=== PATIENT | female | born 1990 | race Caucasian/White ===

== ENCOUNTER 2024-09-17 07:05 | Inpatient (IN) ==
--- NOTE | 2024-09-09 12:42 | Anesthesiology Consultation ---
Date of Service September 09, 2024 Assessment & Plan (1) Encounter for pre-operative examination: - lumbar spine MRI 09/20/22 (full report is under imaging) 1. Congenital/developmental changes within the lumbar spine most pronounced within the lower lumbar spine as described above. This likely accounts for the degenerative changes within the mid to lower lumbar spine as well as the central canal/neural foraminal narrowing. 2. No fracture or subluxation. 3. Degenerative changes within the lower thoracic spine as described above. - Per patternmaker on 09/09/24: No known infectious disease contacts, current infectious disease symptoms in past 10 days or COVID positive test result in the past 30 days. Chart Review Chart Review: childbirth educator initiated History Surgery Operation Date: 09/17/24 08:50 Proposed Procedures p Section (Delivery of Baby Through Abdominal Incision) - Jacoby Hammond MD, FACOG Height/Weight Height: 5 ft 2 in Weight: 79.832 kg Allergies Allergy/AdvReac Type Severity Reaction Status Date / Time No Known Allergies Allergy Verified 09/09/24 11:58 Medications Home Medications Medication Instructions Recorded Confirmed Last Taken prenat.vits,deonna,wsb-vuhw-galzc 1 tab PO DAILY 11/13/22 09/09/24 Unknown Past Medical History Medical History (Updated 09/09/24 @ 12:40 by Bettye Macias PA-C) Disc degeneration, lumbosacral History of COVID-2020, resolved Infertility, female hx Low back pain Lumbar radiculopathy Lumbosacral radiculopathy Past Family History Family History Grandfather (Maternal) , early CVD in 40's Myocardial infarction Uncle , Early CVD Myocardial infarction Uncle Myocardial infarction Uncle Myocardial infarction Father Diabetes Hypertension Grandmother (Maternal) Hypertension Mother Dyslipidemia Denies family history of Ovarian cancer Prostate cancer Breast cancer Colorectal cancer Past Surgical History Surgical History Hx of dilation and curettage 07/2023 Status post colposcopy [place] teeth extracted Social History Smoking Status: Never smoker Do You Dip or Chew Tobacco: No Hx Alcohol Use: Yes (none while ) Alcohol type: wine alcohol intake frequency: holidays/special occasions only Hx Substance Use: Yes substance use type: former substance user and marijuana Last Used Substance Other:: none for last 2-3 years, only occasional when she did (had medical card) Lab Results Anesthesia Preop Results Results Anesthesia Widget: Hgb 12.3 g/dl (12.0-16.0) 07/23/24 Hct 36.7 % (37.0-47.0) L 07/23/24 Urine Color Yellow 07/23/24 Urine Appearance Clear (Clear) 07/23/24 Urine pH 8.0 (4.5-7.5) H 07/23/24 Urine Specific [place] 1.013 (1.000-1.030) 07/23/24 Urine Protein Negative (Negative) 07/23/24 Urine Glucose (UA) Negative (Negative) 07/23/24 Urine Ketones Negative (Negative) 07/23/24 Urine Blood Negative (Negative) 07/23/24 Urine Nitrite Negative (Negative) 07/23/24 Urine Bilirubin Negative (Negative) 07/23/24 Urine Urobilinogen Negative (Negative) 07/23/24 Urine Leukocyte Esterase Negative (Negative) 07/23/24
[2024-09-17] MEDS ORDERED: OXYTOCIN 30 UNITS/NSS 30 UNITS/500 ML BAG IV PRN (07:18)
[2024-09-17] MEDS ORDERED: SODIUM CHLORIDE 0.9% 100 ML IV PRN (07:25)
[2024-09-17] MEDS ORDERED: OXYTOCIN 10 UNITS/ML VIAL ONE (07:43)
[2024-09-17] MEDS ORDERED: PHENYLEPHRINE HCL 10 MG/ML VIAL ONE (07:51)
[2024-09-17 07:54] LABS: Hematocrit (blood only) 35.6 % (37.0-47.0); Hemoglobin 12.4 g/dl (12.0-16.0); Mean Corpuscular Hemoglobin 30.1 pg (25.0-34.0); Mean Corpuscular Hgb Conc 34.8 g/dL (32.0-36.0); Mean Corpuscular Volume 86.4 fL (80.0-100.0); Mean Platelet Volume 10.1 fL (9.4-12.4); Platelet Count 244 K/uL (130-400); RDW Coefficient of Variation 13.2 % (11.5-14.5); RDW Standard Deviation 41.1 fL (36.4-46.3); Red Blood Count 4.12 M/uL (4.20-5.40); White Blood Count 10.16 K/ul (4.8-10.8)
[2024-09-17] MEDS: ACETAMINOPHEN 500 MG TAB PO SCH (08:13)
[2024-09-17] MEDS: LACTATED RINGER'S 1,000 ML IV SCH ×2 (08:15→09:29)
[2024-09-17] MEDS: CITRIC ACID/SODIUM CITRATE 15 ML UDC PO SCH (08:46)
--- NOTE | 2024-09-17 09:06 | History & Physical Report ---
Date of Service September 17, 2024 Assessment & Plan (1) Placenta previa antepartum in third trimester: Plan: section. The patient was counseled to the nature of the procedure including alternatives such as labor. Risks were discussed including bleeding infection injury to bowel bladder ureter vessels and even baby. Deep Vein thrombosis, pulmonary embolus discussed. Breakdown of incision reviewed. Deep vein thrombosis pulmonary embolus hernia and failure of the incision to heal were discussed Patient verbalized understanding of this and was given ample time to ask questions Note we had extensive discussion yesterday regarding placenta previa the risks of hemorrhage the risk of blood transfusion and possibility of hysterectomy in these cases this is an anterior placenta there is an alternative though as labor is not a reasonable alternative with placenta previa extensively reviewed the consent yesterday in depth patient had time to ask questions and voices understanding Admission and Anticipated Discharge Date Admission Date: September 17, 2024 History of Present Illness Primary Care Provider: Damion Marcial III, EMMANUEL Visit TEMO Calculator Estimated Delivery Date Method Current WG Current Estimate 10/09/24 Ultrasound #1 36w 5d Other Estimates 10/09/24 Ultrasound #2 36w 5d LMP: 01/08/24 : 3 Full term: 0 Premature: 0 Total Number of Induced Abortions: 0 Total Number of Spontaneous Abortions: 2 Ectopics: 0 Multiple births: 0 Number of Living Children: 0 and Delivery Plans AMA (35@del) *Weekly NST's @36 wks Anterior previa. *recheck at 36wks *sched 37wk c/s (HROBM ok for 36w6d with steroids) C/S SCHEDULED FOR 09/17/[address] PHILLIPS AND DR. STEVENSON TO ASSIST IN THE MAIN OR Rubella non-immune Bleeding in Steroids to be given at L&D 09/14 and 09/15 GBS+ OB Visit Log Initial Weight: 153 lb 3.2 oz Allergies Allergy/AdvReac Type Severity Reaction Status Date / Time Latex, Natural Rubber Allergy Rash Verified 09/17/24 08:17 Home Medications Medication Instructions Recorded Confirmed Type prenat.vits,deonna,mgs-qajt-gwbti 1 tab PO DAILY 11/13/22 09/17/24 History calcium carbonate [Tums] 3 tabs PO DAILY PRN Heartburn 09/10/24 09/17/24 History famotidine 20 mg tablet (Pepcid) 20 mg PO DAILY 09/17/24 09/17/24 History Patient History Medical History (Updated 09/17/24 @ 08:09 by Roya Hadley RN) Placenta previa History of COVID-2020, resolved Infertility, female hx Lumbosacral radiculopathy Low back pain Disc degeneration, lumbosacral Lumbar radiculopathy Surgical History Hx of dilation and curettage 07/2023 Status post colposcopy [place] teeth extracted Family History Grandfather (Maternal) , early CVD in 40's Myocardial infarction Uncle , Early CVD Myocardial infarction Uncle Myocardial infarction Uncle Myocardial infarction Father Diabetes Hypertension Grandmother (Maternal) Hypertension Mother Dyslipidemia Denies family history of Ovarian cancer Prostate cancer Breast cancer Colorectal cancer Social History Smoking Status: Never smoker Second Hand Exposure: No; Do You Dip or Chew Tobacco: No; Tobacco Cessation Education Requested by Patient: No Hx Alcohol Use: No Hx Substance Use: No Preferred Language: Hungarian Communication Ability: Effective Visual Impairment: No Limitations Hearing Ability: Normal Hotel Sales Manager Required: No Beliefs That Will Affect Care: None marital status: marital status details: Janes (34) [phone] Current Living Situation: Spouse Current Living Situation Comment: Lives with , 2 dogs current occupational status: employed current occupation: Dental hygienist How many Children do You have: 0 Other Information That Helps Us Care for You: No Feels Safe at Home: Yes Safety Concerns: Feels Safe At This Time Childhood Exposure to Second-Hand Smoke: Yes Diet: regular caffeine: Yes during the past year weight has: remained stable Dental Care, Regularly: Yes Physical Activity Frequency: Daily Seatbelt Use: never Sunscreen Use: No Assistive Devices: None Physical Exam Constitutional: WD/WN, vitals as above well developed and well nourished Respiratory: normal respiratory effort, lungs clear to auscultation normal respiratory effort Cardiovascular: RRR, no murmur, no edema Gastrointestinal (Abdomen): normal bowel sounds, soft, nontender, no hepatosplenomegaly Results & Data Vital Signs (Past 12 Hours) Vital Signs Temp Resp 09/17/24 07:47 98.1 F 20 Coding Level of Care Code None Diagnoses Placenta previa antepartum in third trimester O44.03
[2024-09-17] MEDS ORDERED: MoRPHine SULFATE PF 1 MG/ML 10 ML AMP/VIAL ONE (09:10)
[2024-09-17] MEDS ORDERED: fentaNYL citrate PF 100 MCG/2 ML VIAL ONE (09:14)
[2024-09-17] MEDS: ceFAZolin 2000MG 2,000 MG/15 ML SYR IV SCH (09:27)
[2024-09-17] MEDS ORDERED: NALOXONE HCL 0.4 MG/1 ML VIAL/CARP IV PRN (09:54)
[2024-09-17] MEDS ORDERED: ONDANSETRON INJ 2 MG/ML 2 ML VIAL IV PRN (09:54)
[2024-09-17] MEDS ORDERED: MoRPHine SULFATE 2 MG/ML CARP IV PRN (09:54)
[2024-09-17] MEDS ORDERED: NALOXONE HCL 0.08 MG in SYRINGE 1.8 ML IV PRN (09:54)
[2024-09-17] MEDS ORDERED: PROMETHAZINE 6.25 MG/50.25 ML BAG IV PRN (09:54)
[2024-09-17] MEDS ORDERED: HYDROmorphone INJ 0.5 MG/0.5 ML SYR IV PRN (09:54)
[2024-09-17] MEDS ORDERED: ePHEDrine sulfate 50 MG/ML AMP IV PRN (09:54)
[2024-09-17] MEDS ORDERED: oxyCODONE HCL IR 5 MG TAB (IMMEDIATE RELEASE) PO PRN (09:54)
[2024-09-17] MEDS ORDERED: NALBUPHINE HCL INJ 10 MG/ML AMP IV PRN (09:54)
[2024-09-17] MEDS ORDERED: MEPERIDINE HCL 25 MG/ML CARP/VIAL IV PRN (09:54)
[2024-09-17] MEDS ORDERED: NALOXONE HCL 1 MG in SODIUM CHLORIDE 0.9% 1,000 ML IV PRN (09:54)
[2024-09-17] MEDS ORDERED: NO NARCOTICS OR SEDATIVES SCH (10:00)
[2024-09-17] MEDS ORDERED: DC INTRASPINAL MORPHINE SCH (10:00)
[2024-09-17] MEDS: CARBOPROST TROMETHAMINE 250 MCG/ML AMPUL IM ONE (10:15)
[2024-09-17 10:35] LABS: Base Excess Cord Arterial Bld -2.7 mEq/L (-9-1.8); CO2 Cord Arterial Blood 51 mmHg (39.1-73.5); HCO3 Cord Arterial Blood 25 mmol/L (19.7-28.5); Oxygen Sat Cord Arterial Blood < 60.0 % (<60); PO2 Cord Arterial Blood 23 mmHg (4.1-31.7); pH Cord Arterial Blood 7.29 (7.1-7.38)
[2024-09-17 10:38] LABS: Base Excess Cord Venous Blood -2.3 mEq/L (-7.7-1.9); Cord Venous Blood HCO3 27 mmol/L (18.4-26.8); Cord Venous Blood PCO2 70 mmHg (30.4-57.2); Cord Venous Blood PO2 < 20 mmHg (14.1-43.3); O2 Saturation Cord Venous Bld < 60.0 % (<68)
--- NOTE | 2024-09-17 10:41 | Operative Report ---
Post Operative Report Pre & Post Diagnosis Operation Date: 09/17/24 09:00 Pre-Op Diagnosis: intrauterine , primary section for placenta previa Post-Op Diagnosis: same I identified the patient and participated in the time-out.: Yes Procedure Operation Date: 09/17/24 09:00 Actual Procedures p Section (Placenta Previa) - In OR 2 for living male child at 1009(Bilateral) - Jacoby Hammond MD, FACOG Surgeon Jacoby Hammond MD, FACOG Rivet Catcher Dr. Sheppard Quantitative Blood Loss (QBL) 500 Findings Consistent with Post-Op Diagnosis Specimens Cord blood Cord gases Description of Procedure Regional anesthetic had been given by anesthesia patient was prepped and draped with a leftward tilt preoperative antibiotics had been given in appropriate timing by anesthesiology. Once the prep was allowed to fully dry timeout was performed. Pickups with teeth were used to test the incision area was found to be adequate for incision as the patient did not feel sharp pain. Scalpel was used to make a Pfannenstiel incision on the lower abdomen. We then cut through the subcutaneous fat down to the level of the anterior rectus sheath fascia this was cut in the midline and then extended laterally with the curved Cowan scissors. At this stage we then placed 2 Den clamps on the anterior aspect of the fascia. Using the curved Cowan's we are able to dissect the fascia superiorly away from the rectus muscles. Care was taken to maintain hemostasis. Den clamps were then placed to the inferior aspect of the anterior sheath of the fascia. Fascia was then dissected away from the rectus muscles inferiorly towards the pubic bone. A Den was then placed in the midline both inferiorly and superiorly. This was to allow exposure by retraction rectus muscles were in the midline with were then able to cut through the peritoneum and then enter the peritoneal cavity. Opening was enlarged to allow exposure of the peritoneal cavity both superiorly and inferiorly. Once adequate space was obtained a bladder retractor was placed to expose the lower segment Metzenbaums were used to dissect the bladder flap inferiorly away from the uterus. This was done sharply bladder retractor was then repositioned to expose the lower segment of the uterus Fresh scalpel was used to make a low transverse incision on the uterus. Uterus was then entered bluntly with the operators finger, membranes ruptured and the opening was enlarged using the operators fingers bluntly pulling superiorly and inferiorly to allow exposure. It should be noted the placenta was anterior and we did break through this using the operative fingers Baby was delivered by first flexion of the head elevation of the head out of the pelvis and then pressure by the early childhood assistant on the maternal abdomen. Baby's head was then delivered mouth and then nares were suctioned and then using gentle traction the baby was fully delivered. Live vigorous infant. Fluid was clear cord clamped and cut cord gases obtained cord blood obtained baby handed to pediatrics. Placenta removed was removed with traction we ensure the entire placenta was removed with a moist lap sponge into the uterus Uterus was then exteriorized. IV Pitocin had been started by anesthesia tone improved there were no extensions the uterus was then closed using 0 Monocryl in a 2 layer closure the first layer closed in a running locked fashion from left to right and then a second closure from left to right in a running nonlocked fashion. At this stage hemostasis was excellent. Uterus was placed back in the peritoneal cavity with suction irrigation out and inspection of the uterus at this stage revealed excellent hemostasis Retractors were removed urine color was clear at this stage of the case we inspected the rectus muscles they were hemostatic fascia was closed with 0 Vicryl subcutaneous fat was irrigated and closed with 3-0 Vicryl skin closed with 4-0 subcuticular Monocryl Note adnexa and uterus appeared normal hemostasis was excellent I did inject 250 mcg of Hemabate into the uterus avoiding intravascular injection because of placenta previa estimated blood loss 500 mL I attest to the content of the Intraoperative Record and any orders documented therein. Any exceptions are noted below. OB Procedure Charges 98073
[2024-09-17] MEDS ORDERED: ONDANSETRON INJ 2 MG/ML 2 ML VIAL ONE (10:43)
[2024-09-17] MEDS ORDERED: MAGNESIUM HYDROXIDE SUSP 30 ML UDC PO PRN (11:15)
[2024-09-17] MEDS ORDERED: LACTATED RINGER'S 1,000 ML IV SCH (11:15)
[2024-09-17] MEDS ORDERED: BENZOCAINE 20% SPRY 85 APPLN/85 GM CAN EXT PRN (11:15)
[2024-09-17] MEDS ORDERED: SENNA 8.6 MG TAB PO PRN (11:15)
[2024-09-17] MEDS ORDERED: HYDROCORTISONE ACETATE 25 MG SUPP PR PRN (11:15)
[2024-09-17] MEDS ORDERED: diphenhydrAMINE Capsule 25 MG CAP PO PRN (11:15)
[2024-09-17] MEDS: miSOPROStoL 200 MCG TAB ONE (11:28)
[2024-09-17] MEDS: METHYLERGONOVINE MALEATE 0.2 MG/ML AMP ONE ×2 (11:28→11:29)
[2024-09-17] MEDS: TRANEXAMIC ACID / 0.7% NACL 1000MG/100ML BAG IV ONE (11:28)
[2024-09-17] MEDS: DIPHTHER/TETAN/PERTUS Vaccine (Tdap, Adol/Adult) 0.5mL IM ONE (11:29)
[2024-09-17] MEDS: CARBOPROST TROMETHAMINE 250 MCG/ML AMPUL ONE ×2 (11:29→11:38)
[2024-09-17] MEDS: MoRPHine SULFATE PF 1 MG/ML 10 ML AMP/VIAL INT SPINAL ONE (11:29)
[2024-09-17] MEDS: KETOROLAC 30 MG/ML VIAL IV SCH (11:35)
[2024-09-17] MEDS: OXYTOCIN 20 UNITS/LR 1,002 ML IV SCH (12:57)
[2024-09-17] MEDS: SIMETHICONE 80 MG CHEW PO SCH (14:05)
--- NOTE | 2024-09-17 15:16 | Anesthesiology Progress Note ---
Date of Service September 17, 2024 Anesthesia Post Procedure Vital Signs Vital Signs: Temp Pulse Pulse Resp BP BP Pulse Ox 09/17/24 15:11 71 96 09/17/24 15:06 71 97 09/17/24 15:01 67 96 09/17/24 14:56 79 96 09/17/24 14:51 78 97 09/17/24 14:50 74 93 09/17/24 14:46 73 95 09/17/24 14:41 69 95 09/17/24 14:40 67 94 09/17/24 14:36 74 96 09/17/24 14:31 74 96 09/17/24 14:26 76 96 09/17/24 14:21 73 95 09/17/24 14:20 85 94 09/17/24 14:15 20 95 09/17/24 14:15 36.7 C 69 20 124/77 95 09/17/24 13:49 79 120/75 09/17/24 13:48 67 95 09/17/24 13:45 68 94 09/17/24 13:43 69 95 09/17/24 13:40 70 94 09/17/24 13:39 71 119/71 09/17/24 13:38 66 96 09/17/24 13:34 65 94 09/17/24 13:33 68 95 09/17/24 13:30 36.6 C 20 09/17/24 13:29 64 111/69 09/17/24 13:28 67 95 09/17/24 13:23 65 95 09/17/24 13:19 65 113/70 09/17/24 13:18 65 96 09/17/24 13:13 65 95 09/17/24 13:09 61 110/69 94 09/17/24 13:08 67 95 09/17/24 13:03 64 95 09/17/24 13:00 20 09/17/24 12:59 67 116/77 09/17/24 12:58 68 96 09/17/24 12:56 73 94 09/17/24 12:53 68 95 09/17/24 12:50 64 124/78 09/17/24 12:48 68 96 09/17/24 12:43 68 97 09/17/24 12:40 70 152/78 H 09/17/24 12:38 66 98 09/17/24 12:33 90 97 09/17/24 12:30 78 138/91 09/17/24 12:28 80 97 09/17/24 12:23 78 99 09/17/24 12:20 67 148/82 H 09/17/24 12:18 73 98 09/17/24 12:13 86 97 09/17/24 12:08 81 98 09/17/24 12:03 65 98 09/17/24 12:00 36.6 C 20 09/17/24 12:00 20 09/17/24 12:00 71 118/78 09/17/24 11:58 82 97 09/17/24 11:53 77 97 09/17/24 11:50 20 09/17/24 11:49 75 137/74 09/17/24 11:48 80 97 09/17/24 11:44 84 93 09/17/24 11:43 79 97 09/17/24 11:40 20 09/17/24 11:39 76 130/73 09/17/24 11:38 84 96 09/17/24 11:33 80 95 09/17/24 11:30 20 09/17/24 11:30 70 119/77 09/17/24 11:28 84 97 09/17/24 11:25 89 93 09/17/24 11:23 88 96 09/17/24 11:20 20 09/17/24 11:20 90 127/74 09/17/24 11:18 85 98 09/17/24 11:13 71 99 09/17/24 11:10 20 09/17/24 11:10 70 152/69 H 09/17/24 11:08 77 93 09/17/24 11:07 89 94 09/17/24 11:03 79 97 09/17/24 11:00 36.4 C L 20 09/17/24 10:59 73 125/76 09/17/24 10:58 78 99 09/17/24 07:47 36.7 C 20 O2 Del Method 09/17/24 15:11 09/17/24 15:06 09/17/24 15:01 09/17/24 14:56 09/17/24 14:51 09/17/24 14:50 09/17/24 14:46 09/17/24 14:41 09/17/24 14:40 09/17/24 14:36 09/17/24 14:31 09/17/24 14:26 09/17/24 14:21 09/17/24 14:20 09/17/24 14:15 09/17/24 14:15 Room Air 09/17/24 13:49 09/17/24 13:48 09/17/24 13:45 09/17/24 13:43 09/17/24 13:40 09/17/24 13:39 09/17/24 13:38 09/17/24 13:34 09/17/24 13:33 09/17/24 13:30 09/17/24 13:29 09/17/24 13:28 09/17/24 13:23 09/17/24 13:19 09/17/24 13:18 09/17/24 13:13 09/17/24 13:09 09/17/24 13:08 09/17/24 13:03 09/17/24 13:00 09/17/24 12:59 09/17/24 12:58 09/17/24 12:56 09/17/24 12:53 09/17/24 12:50 09/17/24 12:48 09/17/24 12:43 09/17/24 12:40 09/17/24 12:38 09/17/24 12:33 09/17/24 12:30 09/17/24 12:28 09/17/24 12:23 09/17/24 12:20 09/17/24 12:18 09/17/24 12:13 09/17/24 12:08 09/17/24 12:03 09/17/24 12:00 09/17/24 12:00 09/17/24 12:00 09/17/24 11:58 09/17/24 11:53 09/17/24 11:50 09/17/24 11:49 09/17/24 11:48 09/17/24 11:44 09/17/24 11:43 09/17/24 11:40 09/17/24 11:39 09/17/24 11:38 09/17/24 11:33 09/17/24 11:30 09/17/24 11:30 09/17/24 11:28 09/17/24 11:25 09/17/24 11:23 09/17/24 11:20 09/17/24 11:20 09/17/24 11:18 09/17/24 11:13 09/17/24 11:10 09/17/24 11:10 09/17/24 11:08 09/17/24 11:07 09/17/24 11:03 09/17/24 11:00 09/17/24 10:59 09/17/24 10:58 09/17/24 07:47 Transfer of Care Handoff Completed per policy Notes Mental Status: alert / awake / arousable Nausea / Vomiting: adequately controlled Pain: adequately controlled Airway Patency, RR, SpO2: stable & adequate BP & HR: stable & adequate Hydration State: stable & adequate Neuraxial Anesthesia: was administered and sensory block is resolving Anesthetic Complications: no major complications apparent and Pt Satisfied with anesthetic care
[2024-09-17] MEDS: ACETAMINOPHEN 325 MG TAB PO SCH (17:32)
[2024-09-17] MEDS: diphenhydrAMINE 50 MG/ML VIAL IV PRN (18:03)
[2024-09-17] MEDS: DOCUSATE SODIUM 100 MG CAP PO SCH (20:12)
[2024-09-17 20:33] VITALS: RESP 18
[2024-09-18] MEDS: CALCIUM CARBONATE 500 MG CHEWABLE TAB PO PRN (00:28)
[2024-09-18] MEDS ORDERED: diphenhydrAMINE 50 MG/ML VIAL IV PRN (03:55)
[2024-09-18] MEDS ORDERED: HYDROmorphone INJ 0.5 MG/0.5 ML SYR IV PRN (03:55)
[2024-09-18] MEDS ORDERED: oxyCODONE HCL IR 5 MG TAB (IMMEDIATE RELEASE) PO PRN (03:55)
[2024-09-18] MEDS ORDERED: PROMETHAZINE 12.5 MG/50.5 ML BAG IV PRN (03:55)
[2024-09-18] MEDS ORDERED: ONDANSETRON INJ 2 MG/ML 2 ML VIAL IV PRN (03:55)
--- NOTE | 2024-09-18 07:01 | Obstetrical Progress Note ---
Date of Service September 18, 2024 Postoperative day #1 from for placenta previa she is doing well she feels well her pain is well-controlled she has minimal bleeding she has no extremity pain Assessment & Plan (1) Placenta previa antepartum in third trimester: Postoperative day #1 from section for placenta previa she is doing well incision is clean dry and intact will continue current care Physical Exam Constitutional WD/WN, vitals as above well developed and well nourished Respiratory normal respiratory effort, lungs clear to auscultation normal respiratory effort Cardiovascular RRR, no murmur, no edema Gastrointestinal (Abdomen) normal bowel sounds, soft, nontender, no hepatosplenomegaly Results & Data Vital Signs (Past 12 Hours) Vital Signs Temp Pulse Resp BP Pulse Ox O2 Del Method 09/18/24 06:38 18 96 09/18/24 05:30 18 96 09/18/24 04:55 18 96 09/18/24 03:55 18 96 09/18/24 03:55 98.1 F 71 18 97/60 L 96 Room Air 09/18/24 02:00 18 97 09/18/24 01:00 18 95 09/18/24 00:00 18 96 09/17/24 23:55 18 96 09/17/24 23:55 97.9 F 71 18 114/75 96 Room Air 09/17/24 23:00 18 96 09/17/24 22:00 18 96 09/17/24 21:30 18 97 09/17/24 20:30 18 98 09/17/24 19:45 18 96 09/17/24 19:45 98.2 F 76 18 115/73 96 Room Air
[2024-09-18 07:56] LABS: Basophils # (auto) 0.04 K/uL (0.00-0.20); Basophils % (auto) 0.4 %; Eosinophils # (auto) 0.12 K/uL (0.00-0.50); Eosinophils % (auto) 1.2 %; Hematocrit (blood only) 30.4 % (37.0-47.0); Hemoglobin 10.4 g/dl (12.0-16.0); Immature Granulocytes # (auto) 0.09 K/uL (0.01-0.20); Immature Granulocytes % (auto) 0.9 %; Lymphocytes # (auto) 2.18 K/uL (1.20-3.40); Lymphocytes % (auto) 21.2 %; Mean Corpuscular Hemoglobin 30.1 pg (25.0-34.0); Mean Corpuscular Hgb Conc 34.2 g/dL (32.0-36.0); Mean Corpuscular Volume 88.1 fL (80.0-100.0); Mean Platelet Volume 10.2 fL (9.4-12.4); Monocytes # (auto) 0.82 K/uL (0.11-0.59); Neutrophils # (auto) 7.04 K/uL (1.40-6.50); Neutrophils % (auto) 68.3 %; Platelet Count 222 K/uL (130-400); RDW Coefficient of Variation 13.4 % (11.5-14.5); RDW Standard Deviation 42.6 fL (36.4-46.3); Red Blood Count 3.45 M/uL (4.20-5.40); White Blood Count 10.29 K/ul (4.8-10.8)
[2024-09-18] MEDS: PRENATAL VITAMIN 1 TAB PO SCH (08:24)
[2024-09-18] MEDS: FERROUS SULFATE 325 MG TAB PO SCH (08:24)
[2024-09-18] MEDS ORDERED: KETOROLAC 30 MG/ML VIAL IV PRN (11:30)
[2024-09-18] MEDS: IBUPROFEN 600 MG TAB PO SCH (11:38)
[2024-09-18] MEDS: bisacodyL 5 MG TABEC PO SCH (20:12)
[2024-09-18 23:42] VITALS: O2SAT 97
[2024-09-19 07:29] LABS: Hematocrit (blood only) 31.5 % (37.0-47.0); Hemoglobin 10.7 g/dl (12.0-16.0)
--- NOTE | 2024-09-19 07:56 | Obstetrical Progress Note ---
Date of Service September 19, 2024 Assessment & Plan (1) Encounter for care and examination after delivery: POD2 s/p pCS for previa. Some anxiety due to baby not feeding well last night, some soreness herself but managed w/ meds. Will try abd binder today, continue routine pp care. If feeling much better later, may consider dc otherwise plan dc tomorrow Subjective Ambulation: ambulating normally Voiding: no voiding problems Passing Gas:: Yes Diet Tolerance:: regular diet Lochia:: Small Feeding Type:: breast feeding Pain well managed with medication Review of Systems Denies fevers, chills, n/v, ROBERSON, CP, SOB Physical Exam Constitutional WD/WN, vitals as above no acute distress Respiratory normal respiratory effort, lungs clear to auscultation Cardiovascular RRR, no murmur, no edema Gastrointestinal (Abdomen) Percussion/Palpation: abdomen soft; abdomen nontender fundus firm at umbilicus and NT, incision c/d/i Musculoskeletal BLE symmetric, nonerythematous, nontender Results & Data Vital Signs (Past 12 Hours) Vital Signs Temp Pulse Resp BP Pulse Ox O2 Del Method 09/18/24 23:30 98.4 F 88 18 132/74 97 Room Air 09/18/24 20:05 97.9 F 89 18 106/69 98 Room Air
[2024-09-19] MEDS ORDERED: bisacodyL 10 MG SUPP PR PRN (10:34)
[2024-09-19 10:58] VITALS: BP 118/62; PULSE 83; TEMP 98.1
[2024-09-19] MEDS: IBUPROFEN 600 MG TAB PO PRN (12:45)
[2024-09-19] MEDS ORDERED: ACETAMINOPHEN 325 MG TAB PO PRN (17:30)
== END 2024-09-19 16:15 | disposition home or self-care (01) | DRG 788 ==
LOC: 4S1 07:05 → EDSTATUS 09:00 → 4E2 15:49